=== PATIENT | female | born 1960 | race Caucasian/White ===

== ENCOUNTER 2019-12-13 05:05 | Inpatient (IN) ==
[2019-12-13] MEDS ORDERED: IPRATROPIUM/ALBUTEROL 3 ML AMPUL.NEB NEB PRN ×2 (05:38→10:18)
[2019-12-13] MEDS ORDERED: SCOPOLAMINE 1 PATCH PATCH TOPICAL PRN (05:38)
[2019-12-13] MEDS ORDERED: CELECOXIB 200 MG CAPSULE PO SCH (06:00)
[2019-12-13] MEDS ORDERED: ceFAZolin 2 GM in DEXTROSE 5% IN WATER 50 ML IV SCH (06:00)
[2019-12-13] MEDS ORDERED: 0.9 % SODIUM CHLORIDE 9 ML, KETOROLAC 30 MG, ROPIVACAINE HCL/PF 49.5 ML, EPINEPHrine 0.... IJ SCH (06:00)
[2019-12-13] MEDS ORDERED: oxyCODONE 10 MG TAB.ER.12H PO SCH (06:00)
[2019-12-13] MEDS: PREGABALIN 75 MG CAPSULE PO SCH (07:15)
[2019-12-13] MEDS ORDERED: POLYETHYLENE GLYCOL 3350 17 GM PACKET PO PRN (07:27)
[2019-12-13] MEDS ORDERED: ONDANSETRON 4 MG/2 ML VIAL IV PRN ×2 (07:27→10:18)
[2019-12-13] MEDS ORDERED: BISACODYL 10 MG SUPP.RECT PR PRN (07:27)
[2019-12-13] MEDS ORDERED: FLEETS ADULT ENEMA PR PRN (07:27)
[2019-12-13] MEDS ORDERED: MAGNESIUM HYDROXIDE 30 ML ORAL.SUSP PO PRN (07:27)
[2019-12-13] MEDS ORDERED: BENZOCAINE/MENTHOL 1 LOZENGE PO PRN ×2 (07:27→10:18)
[2019-12-13] MEDS ORDERED: TRANEXAMIC ACID 1,000 MG/10 ML VIAL IV ONE ×2 (07:27→07:40)
[2019-12-13] MEDS ORDERED: LIDOCAINE HCL/PF 100 MG/5 ML SYRINGE IV ONE (07:40)
[2019-12-13] MEDS ORDERED: KETAMINE 100 MG/ML ML IV ONE (07:40)
[2019-12-13] MEDS ORDERED: ONDANSETRON 4 MG/2 ML VIAL IV ONE (07:40)
[2019-12-13] MEDS ORDERED: fentaNYL 100 MCG/2 ML VIAL IV ONE (07:40)
[2019-12-13] MEDS ORDERED: ROPIVACAINE HCL/PF 20 ML VIAL IJ ONE (07:40)
[2019-12-13] MEDS ORDERED: PROPOFOL 200 MG/20 ML VIAL IV ONE (07:40)
[2019-12-13] MEDS ORDERED: ePHEDrine 50 MG/ML AMPUL IV ONE (07:40)
[2019-12-13] MEDS ORDERED: DEXAMETHASONE 10 MG/ML VIAL IV ONE (07:40)
[2019-12-13] MEDS ORDERED: VANCOMYCIN 1 GM VIAL TOPICAL ONE (08:30)
[2019-12-13] MEDS ORDERED: LACTATED RINGERS 250 ML IV PRN (10:18)
[2019-12-13] MEDS ORDERED: ACETAMINOPHEN 1,000 MG/100 ML BOTTLE IV ONE (10:18)
[2019-12-13] MEDS ORDERED: NALOXONE HCL 0.4 MG/ML VIAL IV PRN (10:18)
[2019-12-13] MEDS ORDERED: diphenhydrAMINE 50 MG/ML VIAL IV PRN (10:18)
[2019-12-13] MEDS ORDERED: PROMETHAZINE 25 MG/ML VIAL IV PRN (10:18)
[2019-12-13] MEDS ORDERED: fentaNYL 100 MCG/2 ML VIAL IV PRN (10:18)
[2019-12-13] MEDS ORDERED: MEPERIDINE 25 MG/ML SYRINGE IV PRN (10:18)
[2019-12-13] MEDS ORDERED: LACTATED RINGERS 1,000 ML IV SCH (10:30)
[2019-12-13] MEDS ORDERED: GUM MASTIC/STORAX/MSAL/ALCOHOL 1 DOSE DROPERETTE TOPICAL ONE (10:37)
--- NOTE | 2019-12-13 10:46 | Brief Operative Note ---
Date of procedure: 12/13/19 Pre-op diagnosis: right knee OA Post-op diagnosis: same Procedure: Right vicente TKA Grafts/Implants: Yes (alan 7 universal tibia, 6 femur, 39 patella) Anesthesia: GETA, spinal Findings: knee OA Complications: none Surgeon: Juan Cha Sandblast Carver: Vasquez Sifuentes Estimated blood loss (cc): 100 Tourniquet Time (Minutes): 120 Specimens Removed/Pathology: none sent Condition: stable Disposition: PACU
--- NOTE | 2019-12-13 11:40 | XRay Report ---
HISTORY: Postop right knee arthroplasty FINDINGS: There is a well positioned total knee prosthesis. There is no fracture. Most of the spurs around the joint seen preoperatively have been resected. IMPRESSION: Well-positioned right knee prosthesis Interpreted and Authenticated by: Filippo Friedman 12/13/19
[2019-12-13] MEDS: LACTATED RINGERS 1,000 ML IV SCH (11:53)
--- NOTE | 2019-12-13 12:13 | Operative Note ---
DATE OF OPERATION: 12/13/2019 PREOPERATIVE DIAGNOSIS: Right knee bone on bone osteoarthritis. POSTOPERATIVE DIAGNOSIS: Right knee bone on bone osteoarthritis. PROCEDURE PERFORMED: Right Martin total knee arthroplasty. SURGEON: Juan Cha M.D. CORN DETASSELER: Vasquez Sifuentes PA-C. This provider's expertise and technical skill were required throughout the case. The PA assisted with preoperative coordination, intraoperative retraction, wound closure, dressing and splint application, as well as postoperative documentation and care coordination. ANESTHESIA: Spinal with general. IV FLUIDS: 2 liters lactated ringer. ESTIMATED BLOOD LOSS: 100 mL TOURNIQUET TIME: 2 hours at 300 mmHg. IV ANTIBIOTICS: 2 grams Ancef. IMPLANTS: [place] triathlon knee cruciate retaining TKA. Size 6 femur, size 7 tibia-universal base plate, size 10 mm poly with a 39 symmetric patella. PATHOLOGY: None. INTRAOPERATIVE COMPLICATIONS: None apparent. INDICATIONS: The patient is a 59-year-old female who has severe right knee [id number] osteoarthritis with subluxation and a flexion contracture who has been treated in a conservative manner in [place] for multiple years. She is to the point where she cannot tolerate the limitation with her knee and daily pain and failure of conservative management, so she wishes to proceed with total knee arthroplasty. Further discussion of risks, benefits, and alternatives with regards to total knee arthroplasty were completed. Using the combined decision making process elected to proceed with TKA. DESCRIPTION OF PROCEDURE: The patient was met in the preoperative holding area where site was verified and marked with the patient's input. The patient underwent spinal anesthesia and then she was transferred to the operating room and underwent general anesthesia. Her right lower extremity had a well-padded tourniquet about the proximal thigh, was cleaned with Hibiclens wipe and her left lower extremity had sequential compression device in place. The right lower extremity was then prepped and draped in the usual sterile fashion with ChloraPrep. A surgical timeout was performed to verify patient identity, correct procedure being performed, correct extremity being operated on, and everybody was in agreement. Esmarch was utilized to exsanguinate the extremity and the tourniquet inflated to 300 mmHg. With the knee in approximately 40 degrees of knee flexion, I created a midline incision from approximately 3 fingerbreadths proximal to the patella and to the level of the tibial tubercle medial aspect. Skin was sharply incised down to the quad tendon proximally as well as the peritenon over the patellar tendon itself. The medial flap was created as well as laterally; however, less so laterally. IrriSept was utilized to irrigate the wound. At this point, a medial parapatellar arthrotomy was created leaving a cuff of tissue on the patella for later closure. The superior and inferior borders of the patella were marked prior to incising the capsule. Once this was complete, the patella was subluxed laterally. The anterior horn of the medial meniscus was incised as well as the lateral horn. ACL was excised off the tibialis footprint. At this point, we repaired our patella with an initial measurement of 24 mm overall thickness and relatively oblong in shape. This was cut down to a size 13 as a 39 mm patella is 11 mm thick, to restore the same thickness. Once the patella was cut, I did chamfer the lateral aspect of it as well. The patella protector was placed and subluxated laterally. At this point, we placed checkpoints along the femur and the tibia. After creating our medial sleeve freeing up the deep MCL. We placed for two Steinmann pins in the femur as well as her tibia to place our arrays for the navigation. At this point, we registered the patient through hip center, medial and lateral malleoli and the distal femur and the tibia and the checkpoints. At this point, our initial measurements with approximately a 15 degree knee flexion contracture, overall varus/valgus alignment of 1 degree of varus. Once this was completed, at 15 degrees of knee flexion and 90 degrees of flexion we stressed and obtained our gaps. This left the lateral compartment approximately 20 mm laterally, 18 medially. Once this was analyzed, we did increase external rotation to approximately 2 degrees as well as placed one degree of varus in the tibia. It balanced out with a 9 mm poly being in 19 laterally and 18 medially. I was happy with this overall construct. At this point, the retractors were placed, both medial and lateral to protect the collateral ligaments as well as the patella. The bone cuts were all made utilizing the robotic device. Once this was complete, we excised the posterior osteophytes as well with a curved osteotome under direct visualization. The tibia was subluxated anteriorly with medial and lateral retractors placed. The baseplate was placed-we initially tried a size 6; however, this was too small and we placed a size 7, which fit better. This was then pinned in place, drilled and punched and exchanged for a regular baseplate for a trial. The femur was then placed. The medial lateral was slightly narrow; however, from A to P was the correct implant size. Split the difference and slightly cheated towards the lateral with the femur; we placed the two femoral drill holes within the femur and placed her poly 9 mm and balanced it all out with a 9 mm poly. She did get to full extension as well and she was stable to varus and valgus throughout the range of motion. I was happy with the overall construct. At this point, all implants were removed. The tibia was prepared by the pulse lavage as well as CO2 to clear all the bone surfaces. At this point, the baseplate was cemented in place. All excess cement was removed. Subsequently, we placed the femur in a similar fashion and placed a trial poly in full extension, resting on a towel roll. The patella was placed as well, which was 39 mm. Overall, tracking was central and I was happy it did not require a lateral release. At this point, we ensured that we had removed all the excess cement about the implants. Once that was hardened, we removed the trial poly. I did place a 10 mm poly at this point because I felt that is was going to be slightly lax over time. This came out to be 1-2 degrees of flexion contracture and stable varus and valgus through full range of motion with good patellar tracking. The local anesthetic was injected in the posterior compartments medially as well as within the periosteum about the tibia and the femur and throughout the soft tissue. Again, we pulse lavaged, soaked the knee in 0.035% Betadine solution and pulse lavage as well and we placed IrriSept and again pulse lavaged. The capsule was closed with FiberWire for the patella portion and then overrun with a Stratafix suture for the quad tendon repair. The inferior portion was repaired with a 0 Vicryl in a running fashion and subcutaneus tissue was closed in layered fashion with 2-0 Vicryl, 3-0 Vicryl and a running Monocryl with jillian and Steri-Strips and Aquacel dressing. The patient was then awoke from anesthesia and transferred to PACU in stable as well. POSTOPERATIVE PLAN: The patient will be observed overnight for ensured adequate pain control and to work with Physical Therapy. DLW:luana Job ID: [id number] Doc ID: [id number] Juan Cha MD [facility]
[2019-12-13] MEDS: DOCUSATE SODIUM 100 MG CAPSULE PO SCH ×2 (12:22→20:15)
[2019-12-13] MEDS: oxyCODONE HCL 5 MG TABLET PO PRN ×3 (12:29→21:27)
[2019-12-13] MEDS: 0.9 % SODIUM CHLORIDE 10 ML SYRINGE IV SCH ×2 (13:51→23:12)
[2019-12-13] MEDS: ACETAMINOPHEN 1,000 MG/100 ML BOTTLE IV SCH (20:03)
[2019-12-13] MEDS: GABAPENTIN 300 MG CAPSULE PO SCH (20:15)
[2019-12-13] MEDS ORDERED: ASPIRIN 81 MG TAB.CHEW ONE (20:18)
[2019-12-13] MEDS: ASPIRIN 325 MG ENTERIC COATED TABLET PO SCH (20:20)
[2019-12-13] MEDS ORDERED: SENNOSIDES 1 TABLET PO SCH (21:00)
[2019-12-14] MEDS: LACTATED RINGERS 1,000 ML IV SCH ×2 (00:41→10:37)
[2019-12-14] MEDS: oxyCODONE HCL 5 MG TABLET PO PRN ×3 (02:11→11:48)
[2019-12-14] MEDS: ACETAMINOPHEN 1,000 MG/100 ML BOTTLE IV SCH ×2 (03:26→11:37)
[2019-12-14] MEDS: METHOCARBAMOL 750 MG TABLET PO PRN ×2 (04:09→12:57)
[2019-12-14] MEDS: 0.9 % SODIUM CHLORIDE 10 ML SYRINGE IV SCH (04:26)
[2019-12-14] MEDS ORDERED: ceFAZolin 1 GM VIAL IV ONE (07:20)
[2019-12-14] MEDS ORDERED: LEVOTHYROXINE 100 MCG TABLET PO SCH (07:30)
[2019-12-14] MEDS: GABAPENTIN 300 MG CAPSULE PO SCH (08:33)
[2019-12-14] MEDS: DOCUSATE SODIUM 100 MG CAPSULE PO SCH (08:33)
[2019-12-14] MEDS: ASPIRIN 325 MG ENTERIC COATED TABLET PO SCH (08:34)
[2019-12-14] MEDS ORDERED: CELECOXIB 200 MG CAPSULE PO SCH (09:00)
[2019-12-14] MEDS ORDERED: HYDROCHLOROTHIAZIDE 25 MG TABLET PO SCH (09:00)
[2019-12-14] MEDS ORDERED: FLU VACC QS2019-20(6MOS UP)/PF 60 MCG/0.5 ML SYRINGE IM ONE (10:00)
--- NOTE | 2020-01-02 13:41 | Discharge Summary ---
Providers - Providers Patient information: Note initiated : 01/02/20 at 1:38 pm Service Date, if different from initiated Date: [] Patient: Huong Otto 59 y/o F admitted on 12/13/19 for Right Robotic Total Knee Arthroplasty . Chief Complaint: [] Date of admission: 12/13/19 Discharge date: 12/14/19 Attending physician: Juan Cha Physical Therapy Hospitalization Hospital Course: Patient underwent right LAUREN total knee arthroplasty on 13 Dec 2019 and admitted overnight for post operative recovery. She worked with physical therapy on the day of surgery and the following day with some mild dizziness in the AM that improved throughout the day. Her pain was controlled on oral medications, able to void spontaneously and tolerating an oral diet. She was discharge POD 1 when criteria met. She was hemodynamically stable. Discharge diagnosis: Right knee osteoarthritis Reason for admission: right total knee arthroplasty Procedures: Right total knee arthroplasty Complications: None Exam - Exam Incision healing: Yes Incision draining: No Incision red: No Incision swollen: Yes (as expected) Incision inflamed: No Clean and dry: Yes Weight bearing status: full Ortho Discharge - TKA - Patient Instructions Diet: Regular Diet Total Knee Protocol: For Total Knee: Start ROM BRIAN with stationary bike or rocking chair. Work on gaining full extension of knee. Posterior dislocation precautions provided. Hip abductor strengthening and gait training instructions provided. Apply Cryocuff as instructed. Patient Education: Oxycodone/Acetaminophen (By mouth), Aspirin (By mouth), Laxative, Stool Softeners (By mouth), Methocarbamol (By mouth), Gabapentin (By mouth), Celecoxib (By mouth), Knee Replacement (DC) Additional Instructions: Discharge Instructions: Do the exercises at home that physical therapy gave you. Weight bearing as tolerated. Wear comfortable clothing for physical therapy. You are scheduled to start physical therapy at [facility] ([phone]) on December 18 at 2:30 pm., please arrive 15 minutes early for paperwork. Take your prescription, photo ID, insurance cards, and current medication list with you to your first physical therapy appointment. You have the silver dressing, leave in place for 7-14 days then remove. If dressing becomes soiled (turns black), remove and use gauze 4x4 dressing and antimicrobial silver ointment ([id number]-[id number]) and change daily. You may shower with dressing on, pat dry after shower. The two dressings over the pin sites, leave in place for 3 days. You can remove after 3rd day and then take a shower. If having any drainage at pin site do not shower and wait another day. If no drainage then shower and then apply Silvasorb gel and gauze over pin sites. To avoid constipation while taking any narcotic pain medication, take an over the counter stool softener/laxative. Use your Cryocuff or ice packs as directed, on for 20 minutes at a time, throughout the day. Ice and elevation will help with pain and swelling. If you have any questions or concerns call your orthopedic surgeon before going to the emergency room. [facility] has a farm service consultant physician 24 hours per day/7 days per week and can be reached at [phone]. Call for fevers above 100.5 or pain not controlled by medication. Your prescriptions are with your discharge information. You will need take your pain prescription to your pharamacy to be filled. You have several prescriptions that have been electronically transmitted to your pharmacy at [facility] and should be ready to bead picker after discharge home today. You should have prescriptions for Celebrex, Colace, Aspirin, Neurontin and Robaxin. Take Aspirin 81 mg twice daily for 1 month as prescribed to prevent blood clots (see medication list). - Follow Up Plan Follow Up Appointments: Vasquez Sifuentes PA-C [Physician [facility]am[facility]] - 12/28/19 9:00 am (11-13 days) Disposition: Home, Self-Care Care Plan Goals: This discharge packet is provided to you to help keep you informed about your care. We want to ensure you get everything you need when you go home. You will also be receiving a call from us in a few days to follow up with you and see how you are doing since your discharge. This gives us a chance to listen to any concerns you maybe experiencing since you were discharged or any additional needs you may have, as well as providing us feedback on your care experience. We strive to always provide excellent care and thank you for your feedback and for choosing [facility]. Prognosis: Good Rehab Potential: Good I certify that the patient requires SNF services: No - Orders For Discharge Prescriptions: Celecoxib [Celebrex] 200 mg PO DAILY #30 cap Transmission Status: Received by [facility] Aspirin [Children's Aspirin] 81 mg PO BID #60 tab.chew Transmission Status: Received by [facility]69 Docusate Sodium [Colace] 100 mg PO BID #60 cap Transmission Status: Received by [facility]69 Gabapentin [Neurontin] 300 mg PO BID #60 cap Transmission Status: Received by [facility]69 Methocarbamol [Robaxin] 750 mg PO Q6HP PRN #30 tab PRN Reason: Muscle Spasm Transmission Status: Received by [facility]69 oxyCODONE HCL [Roxicodone] 5 - 10 mg PO Q4HP PRN #65 tab PRN Reason: Pain Level 3-6 Prescription Printed Additional Discharge Orders: Physical Therapy at Discharge - TKA Location: None Selected Pending Studies Diet Regular Diet Start ThuDec 12 1327 Shift Summary 12/14/19 05:19 Shift Summary by Sruthi Aviles A&O. Up with SBA and FWW. Ambulated short distance in hallway, during ambulation pt complained of hot flash got a little diaphoretic and lightheaded. Vitals were WNL immediately after. Medicated for pain with 2 tabs of Roxicodone (5mg), just about every 4 hours, scheduled Ofirmev, 750mg PO Robaxin x1, also received scheduled gabapentin at [facility] (doesn't take at home). No IV narcotics ordered. Cryocuff and ice pack used. No post-op antibiotics ordered. AV boots used. Voiding fine. Anticipates discharge today. Initialized on 12/14/19 05:19 - END OF NOTE
== END 2019-12-14 14:20 | disposition home or self-care (01) | DRG 470 ==
LOC: MEDSUR 05:05
PROVIDERS: ADMIT Orthopaedic Surgery; ATTEND Orthopaedic Surgery